=== PATIENT | female | born 1940 | race Caucasian/White ===

== ENCOUNTER 2025-05-01 17:12 | Emergency (ER) | payer OTHER ==
[~2025-05-01] VITALS: Ht 152.4 cm; Wt 68.9 kg
[~2025-05-01 17:12] MED LIST: EVISTA60 MG; NORVASC2.5 MG; SYNTHROID88 MCG; TOPROL XL200 MG; ZOCOR20 MG
[2025-05-01] MEDS ORDERED: SYNTHROID112 MCG PO (17:42)
[2025-05-01] MEDS ORDERED: PROTONIX40 MG PO (17:42)
[2025-05-01] MEDS ORDERED: ELIQUIS5 MG PO (17:42)
[2025-05-01] MEDS ORDERED: TRAZODONE HCL50 MG PO (17:43)
[2025-05-01] MEDS ORDERED: 0.9 % SODIUM CHLORIDE 1,000 ML IV SCH (18:30)
[2025-05-01 19:07] LABS: BASO % 0.7 % (0.1-1.2); EOS # 0.25 (0.04-0.54); EOS % 2.2 % (0.7-7.0); LYMPH # 2.28 (1.18-3.74); LYMPH % 20.4 % (19.3-53.1); MEAN PLATELET VOLUME 9.60 fl (9.4-12.4); MONO # 1.13 (0.24-0.82); MONO % 10.1 % (4.7-12.5); NEUT # 7.42 (1.56-6.13); NEUT % 66.2 % (34.0-71.1); RED CELL DISTRIBUTION WIDTH 12.4 % (11.6-14.4)
[2025-05-01 19:29] LABS: COVID-19 AG NEGATIVE (NEGATIVE)
[2025-05-01 19:42] LABS: ALT/SGPT 17.0 U/L (12-78); AST/SGOT 18.0 U/L (15-37); BILIRUBIN TOTAL 0.64 mg/dL (0.3-1.2); BUN CREA RATIO 22.0 (7.0-25.0); CREATININE SERUM 0.69 mg/dL (0.55-1.02); GFR 81.05; GLOBULINA 3.5 G/DL (2.4-3.5); GLUCOSE FASTING 96.0 mg/dL (65-100); LDH 140.0 U/L (84-246); OSMOLALITY SERUM 280.0 MOSM/KG (275-295); PHOSPHOKINASE CREATININE 139.0 U/L (26-192)
[2025-05-01 21:21] LABS: URINE APPEARANCE Clear; URINE BILIRRUBIN Negative (NEGATIVE); URINE BLOOD Negative; URINE COLOR Yellow; URINE GLUCOSE Negative (NEGATIVE); URINE KETONE Trace (NEGATIVE); URINE LEUKOCYTE Small; URINE NITRATE Negative; URINE PROTEIN Negative (NEGATIVE); URINE UROBILINOGEN 1.0 E.U./dl
[2025-05-01 21:22] LABS: URINE BACTERIA 44.3 uL (0.0-1933); URINE EPITHELIAL CELLS 9.3 uL (0.0-38.8); URINE RBC 7.0 uL (0.0-20.8); URINE WBC 37.0 uL (0.0-23.2)
[2025-05-01 21:45] LABS: TYPE CELLS RENAL TUBULAR; URINE CAST 0.43 uL (0.0-1.40)
== END 2025-05-01 23:35 | disposition home or self-care (01) ==
LOC: ER 17:12
PROVIDERS: General Practice
DX: R42 Dizziness and giddiness (principal); R53.1 Weakness; Z20.822 Contact with and (suspected) exposure to COVID-19; I10 Essential (primary) hypertension; Z91.041 Radiographic dye allergy status
CPT/HCPCS: 36415; 70450; 96365; 96366; 99284; J7030